=== PATIENT | female | born 2000 | race Caucasian/White ===

== ENCOUNTER 2018-01-05 18:07 | Emergency (ER) | payer BC ==
[~2018-01-05] VITALS: Ht 165.1 cm; Wt 79.5 kg
[2018-01-05] MEDS ORDERED: PRENATAL GUMMI1 EACH PO (18:17)
[2018-01-05] MEDS ORDERED: AMOXICILLIN 50500 MG PO (18:38)
[2018-01-05 18:49] VITALS: BP 118/65
== END 2018-01-05 18:53 | disposition home or self-care (01) ==
LOC: ED 18:07
DX: O99.89 Other specified diseases and conditions complicating pregnancy, childbirth and the puerperium (principal); H66.91 Otitis media, unspecified, right ear; Z3A.01 Less than 8 weeks gestation of pregnancy

== ENCOUNTER → 2019-04-09 | Outpatient (CLI) | payer BC ==
[~2019-04-09] MED LIST: AMOXICILLIN 50500 MG PO; PRENATAL GUMMI1 EACH PO
== END ==
LOC: RAD 13:00
DX: R22.2 Localized swelling, mass and lump, trunk (principal)

== ENCOUNTER → 2020-11-06 | Outpatient (CLI) | payer OTHER | LOC: LAB 09:10 | DX: J20.9 Acute bronchitis, unspecified (principal); Z20.822 Contact with and (suspected) exposure to COVID-19 ==